=== PATIENT | female | born 1955 | race Caucasian/White ===

== ENCOUNTER → 2023-04-07 | Outpatient (CLI) | payer MEDICARE, SELFPAY ==
--- NOTE | 2023-04-07 14:03 | MRI_ITS ---
STUDY: MRI LEFT SHOULDER REASON FOR EXAM: Female, 67 years old. Strain, rotator cuff. TECHNIQUE: Standardized fat and water weighted pulse sequences were obtained in all 3 orthogonal planes. COMPARISON: None. FINDINGS: There is a complete full-thickness tear of the distal supraspinatus tendon, with 1.9 cm medial tendon retraction. There is infraspinatus and subscapularis tendinosis. Normal teres minor tendon. Normal supraspinatus muscle. Normal infraspinatus muscle. Normal subscapularis muscle. Normal teres minor muscle. There is a chronic appearing fracture of the anterior-inferior glenoid with degenerative tearing of the anterior labrum. There is secondary degenerative arthrosis of the glenohumeral joint with joint space narrowing, marginal osteophyte formation, chondral thinning, and subchondral marrow edema. There is a moderate glenohumeral joint effusion with fluid communicating into the subacromial-subdeltoid bursa. Intact humeral head and visualized proximal humerus. There is thinning and attrition of the long biceps tendon, suggestive of partial tearing. There is hypertrophic acromioclavicular arthrosis, with inferior osteophyte formation, with mild effacement of the supraspinatus myotendinous junction (coronal T2 series 5 image 9). There is a Type II morphology (curved), with a neutral orientation. Normal visualized coracohumeral and coracoacromial ligaments. Normal quadrilateral space. Normal axillary space. Normal deltoid muscle. Normal trapezius muscle. MRI/Upper Ext Joint Only(Routine) IMPRESSION: Complete full-thickness tear of the distal supraspinatus tendon, with 1.9 cm medial tendon retraction. Infraspinatus and subscapularis tendinosis. Chronic appearing fracture of the anterior-inferior glenoid with degenerative arthrosis of the glenohumeral joint and tearing of the anterior labrum. Moderate glenohumeral joint effusion with fluid communicating into the subacromial-subdeltoid bursa. Thinning and attrition of the long biceps tendon, suggestive of partial tearing. Hypertrophic acromioclavicular arthrosis, with inferior osteophyte formation, with mild effacement of the supraspinatus myotendinous junction. Electronically Signed: Efren Wilson MD at 15:15 EST ,
[2023-04-07 14:21] VITALS: BP 130/76; PULSE 95; O2SAT 97
[2023-04-07 14:32] VITALS: BP 127/64; PULSE 95; O2SAT 95
[2023-04-07 14:44] VITALS: BP 130/67; PULSE 95; O2SAT 94
== END | disposition home or self-care (01) ==
DX: M25.512 Pain in left shoulder (principal); S46.012D Strain of muscle(s) and tendon(s) of the rotator cuff of left shoulder, subsequent encounter
CPT/HCPCS: 73221